=== PATIENT | female | born 1955 | race Caucasian/White ===

== ENCOUNTER → 2020-10-31 06:58 | Day surgery (SDC) | payer BC, SELFPAY ==
[2020-10-30 13:37] LABS: Basophils % 0.7 %; Eosinophils # 0.1 10^3/uL (0.0-0.8); Eosinophils % 1.7 %; Hematocrit 24.8 % (37.0-47.0); Lymphocytes # 1.3 10^3/uL (0.8-4.8); Lymphocytes % 22.1 %; Mean Corpuscular HGB Conc 25.8 g/dL (30.0-36.0); Mean Corpuscular Hemoglobin 15.5 pg (28.0-34.0); Mean Corpuscular Volume 60.2 fL (81-99); Mean Platelet Volume 9.8 fL (7.4-10.4); Monocytes # 0.4 10^3/uL (0.2-0.9); Neutrophils # 4.08 10^3/uL (1.8-7.7); Neutrophils % 68.2 %; Nucleated Red Blood Cells % 0 %; Platelet Count 390 10^3/cmm (130-400); Red Blood Count 4.12 10^6/uL (4.1-5.3); Red Cell Distribution Width 20.4 % (12.1-15.1)
[2020-10-30 13:54] LABS: Hemoglobin 6.4 g/dL (11.5-15.3)
[2020-10-31] VITALS (10 sets, daily range): BP systolic 136–161; BP diastolic 64–78; PULSE 63–87; RESP 18; TEMP 36.3–37.1; O2SAT 98–100; BMI 27.3
[2020-10-31 07:35] LABS: Basophils % 0.6 %; Eosinophils # 0.1 10^3/uL (0.0-0.8); Eosinophils % 1.9 %; Hematocrit 22.4 % (37.0-47.0); Lymphocytes # 1.2 10^3/uL (0.8-4.8); Lymphocytes % 18.2 %; Mean Corpuscular HGB Conc 26.3 g/dL (30.0-36.0); Mean Corpuscular Hemoglobin 15.6 pg (28.0-34.0); Mean Corpuscular Volume 59.1 fL (81-99); Mean Platelet Volume 9.8 fL (7.4-10.4); Monocytes # 0.6 10^3/uL (0.2-0.9); Monocytes % 8.6 %; Neutrophils # 4.47 10^3/uL (1.8-7.7); Neutrophils % 70.4 %; Nucleated Red Blood Cells % 0 %; Platelet Count 360 10^3/cmm (130-400); Red Blood Count 3.79 10^6/uL (4.1-5.3); Red Cell Distribution Width 20.1 % (12.1-15.1); White Blood Count 6.4 10^3/uL (4.0-10.0)
[2020-10-31] MEDS: acetaminophen 325 mg Tablet 650 MG PO (07:37)
[2020-10-31] MEDS: diphenhydrAMINE 50 mg/mL SDV 1mL 25 MG IVP (07:38)
[2020-10-31 07:42] LABS: Hemoglobin 5.9 g/dL (11.5-15.3)
[2020-10-31] MEDS: sodium chloride 0.9% (100 ml) 100 ML 10 ML ×2 (08:06→09:41)
--- NOTE | 2020-10-31 11:28 | PC.NURSE ---
Maria Fernanda Uribe DNP, notified of Hemoglobin of 5.9 this am prior to transfusion. Two units PRBC's infused without difficulty. Premedicated with Tylenol and Benadryl as ordered prior to first unit. VSS. Lungs clear. No reaction noted. CBC to be drawn following transfusion and results called to Maria Fernanda Uribe.
[2020-10-31 12:46] LABS: Basophils % 0.5 %; Eosinophils # 0.1 10^3/uL (0.0-0.8); Eosinophils % 1.7 %; Hematocrit 30.6 % (37.0-47.0); Hemoglobin 8.5 g/dL (11.5-15.3); Lymphocytes # 1.5 10^3/uL (0.8-4.8); Lymphocytes % 22.8 %; Mean Corpuscular HGB Conc 27.8 g/dL (30.0-36.0); Mean Corpuscular Hemoglobin 18.2 pg (28.0-34.0); Mean Corpuscular Volume 65.7 fL (81-99); Monocytes # 0.5 10^3/uL (0.2-0.9); Monocytes % 7.8 %; Neutrophils # 4.45 10^3/uL (1.8-7.7); Neutrophils % 66.7 %; Nucleated Red Blood Cells % 0 %; Platelet Count 314 10^3/cmm (130-400); Red Blood Count 4.66 10^6/uL (4.1-5.3); Red Cell Distribution Width 26.5 % (12.1-15.1); White Blood Count 6.7 10^3/uL (4.0-10.0)
[2020-10-31 13:30] LABS: Slide Review Slide Review Perform
--- NOTE | 2020-10-31 13:47 | PC.NURSE ---
Hemoglobin of 8.5 called to Maria Fernanda Uribe DNP. Pt discharged home. Instructed to follow up with Maria Fernanda Uribe in one week.
== END ==
PROVIDERS: Visit Provider Nurse Practitioner Family
DX: D64.9 Anemia, unspecified (principal)
CPT/HCPCS: 36415; 36430; 85025; 86850; 86900; 86920; 96361; 96374; J1200; P9016

== ENCOUNTER → 2022-11-25 08:04 | Day surgery (SDC) | payer MEDICARE, OTHER, SELFPAY ==
[2022-11-25] MEDS: iron sucrose 200 MG in sodium chloride 0.9% (100 ml) 100 ML 220 MG IV (08:23)
[2022-11-25 08:27] VITALS: BP 171/90; PULSE 106; RESP 18; TEMP 36.4; O2SAT 99
== END ==
PROVIDERS: PCP Nurse Practitioner Family; Visit Provider Nurse Practitioner Family
DX: D50.9 Iron deficiency anemia, unspecified (principal); Z79.899 Other long term (current) drug therapy
CPT/HCPCS: 96365; J1756

== ENCOUNTER → 2022-12-02 07:46 | Day surgery (SDC) | payer MEDICARE, OTHER, SELFPAY ==
[2022-12-02] MEDS: iron sucrose 200 MG in sodium chloride 0.9% (100 ml) 100 ML 220 MG IV (07:58)
[2022-12-02 08:03] VITALS: BP 150/88; PULSE 89; RESP 18; TEMP 36.1; O2SAT 100
== END ==
PROVIDERS: PCP Nurse Practitioner Family; Visit Provider Nurse Practitioner Family
DX: D50.9 Iron deficiency anemia, unspecified (principal); Z79.899 Other long term (current) drug therapy
CPT/HCPCS: 96365; J1756

== ENCOUNTER 2022-12-05 09:21 | Outpatient (CLI) | payer MEDICARE, OTHER, SELFPAY ==
--- NOTE | 2022-12-05 09:27 | MM_ITS ---
WS: [id number] BILATERAL SCREENING DIGITAL TOMOSYNTHESIS MAMMOGRAM WITH CAD HISTORY: SCREENING COMPARISON: 10/22/2018 and 02/17/2015 Bilateral CC and MLO views with tomosynthesis and synthetic mammography submitted. Computer aided det ection analyzed. Breast composition: There are scattered areas of fibroglandular density. No suspicious masses, microc alcifications or architectural distortion. Benign calcifications scattered throughout the RIGHT breas t. MM/[place] [id number] IMPRESSION: BI-RADS: 2-Benign FOLLOW UP: 1 Year Follow-up
== END 2022-12-05 09:22 | disposition home or self-care (01) ==
PROVIDERS: PCP Nurse Practitioner Family; Visit Provider Nurse Practitioner Family
DX: Z12.31 Encounter for screening mammogram for malignant neoplasm of breast (principal)
CPT/HCPCS: 77063; 77067

== ENCOUNTER → 2022-12-09 07:43 | Day surgery (SDC) | payer MEDICARE, OTHER, SELFPAY ==
[2022-12-09 07:56] VITALS: BP 164/97; PULSE 83; RESP 18; TEMP 36.3; O2SAT 100
[2022-12-09] MEDS: iron sucrose 200 MG in sodium chloride 0.9% (100 ml) 100 ML 220 MG IV (08:00)
== END ==
PROVIDERS: PCP Nurse Practitioner Family; Visit Provider Nurse Practitioner Family
DX: D50.9 Iron deficiency anemia, unspecified (principal); Z79.899 Other long term (current) drug therapy
CPT/HCPCS: 96365; J1756

== ENCOUNTER → 2022-12-16 08:29 | Day surgery (SDC) | payer MEDICARE, OTHER, SELFPAY ==
[2022-12-16] MEDS: iron sucrose 200 MG in sodium chloride 0.9% (100 ml) 100 ML 220 MG IV (08:41)
[2022-12-16 08:46] VITALS: BP 176/83; PULSE 85; RESP 18; TEMP 36.2; O2SAT 99
== END ==
PROVIDERS: PCP Nurse Practitioner Family; Visit Provider Nurse Practitioner Family
DX: D50.9 Iron deficiency anemia, unspecified (principal); Z79.899 Other long term (current) drug therapy
CPT/HCPCS: 96365; J1756

== ENCOUNTER → 2022-12-23 07:55 | Day surgery (SDC) | payer MEDICARE, OTHER, SELFPAY ==
[2022-12-23] MEDS: iron sucrose 200 MG in sodium chloride 0.9% (100 ml) 100 ML 220 MG IV (08:07)
[2022-12-23 08:11] VITALS: BP 151/76; PULSE 78; RESP 18; TEMP 35.9; O2SAT 98
== END ==
PROVIDERS: PCP Nurse Practitioner Family; Visit Provider Nurse Practitioner Family
DX: D50.9 Iron deficiency anemia, unspecified (principal); Z79.899 Other long term (current) drug therapy
CPT/HCPCS: 96365; J1756

== ENCOUNTER 2023-08-01 09:30 | Oncology outpatient (recurring) (ONCR) | payer MEDICARE, OTHER, SELFPAY ==
[2023-07-24] MEDS: [UNRECOGNIZED DRUG - REMARK] 268 MG IV (15:28)
[2023-07-24] MEDS: sodium chloride 0.9% 250 ML 75 ML IV (15:28)
[2023-07-24 16:07] VITALS: BP 138/79; PULSE 72; RESP 18; TEMP 36.6; O2SAT 97
== END 2023-08-14 23:59 | disposition home or self-care (01) ==
PROVIDERS: PCP Nurse Practitioner Family; Visit Provider Nurse Practitioner Family
DX: Z53.9 Procedure and treatment not carried out, unspecified reason (principal)
CPT/HCPCS: 96365; J7050; Q0138

== ENCOUNTER 2024-03-12 08:19 | Oncology outpatient (recurring) (ONCR) | payer MEDICARE, OTHER, SELFPAY ==
[2024-03-12 09:18] VITALS: BP 165/87; PULSE 69; RESP 16; TEMP 36.6; O2SAT 98
[2024-03-12] MEDS: sodium chloride 0.9% 250 ML 200 ML IV (09:23)
[2024-03-12] MEDS: [UNRECOGNIZED DRUG - REMARK] 280 MG IV (09:23)
[2024-03-12 09:54] VITALS: BP 134/74; PULSE 62; RESP 16; TEMP 36.3; O2SAT 97
== END 2024-03-15 23:59 | disposition home or self-care (01) ==
LOC: ONCMED 08:20
PROVIDERS: PCP Nurse Practitioner Family; Visit Provider Nurse Practitioner Family
DX: Z79.899 Other long term (current) drug therapy (principal); D50.9 Iron deficiency anemia, unspecified
CPT/HCPCS: 96365; J7050; Q0138